=== PATIENT | male | born 1960 | race Caucasian/White ===

== ENCOUNTER 2017-05-15 10:04 | Emergency (ER) | payer SELFPAY ==
--- NOTE | 2017-05-18 09:47 | ER ---
ADMIT: 05/15/2017 RM/LOC: ER [facility] MR#: [id number] [address] [facility] [address] [place] GOMES [address] [place] [address] Emergency Room Report SEX: M AGE: 56 : 1960 DATE: 05/15/2017 ADDENDUM: This is a med clearance for long-term. They noted that he had blood pressure at 200 systolic, so brought him here. Initially, it was 182/99; now, he is 152/92. He has been told by his primary care physician that he has some borderline hypertension and send him home with lisinopril 5 mg to take one tab daily. Follow up with his provider in a couple of weeks to recheck his blood pressure. Also, told him to buy a blood pressure cuff at home, and he could check his blood pressure 2 to 3 times a day and give those values to his primary care physician. CLINICAL IMPRESSION: Hypertension. JANIE Parker / Con Marie MD / daltonl JOB #: [id number] CC: Con Marie MD, Attending Physician
== END 2017-05-15 10:50 | disposition home or self-care (01) ==
LOC: ER 10:04
DX: I10 Essential (primary) hypertension (principal); F17.210 Nicotine dependence, cigarettes, uncomplicated